=== PATIENT | male | born 1990 | race African-American/Black ===

== ENCOUNTER 2022-06-30 09:37 | Emergency (ER) | payer MEDICAID ==
[~2022-06-30] VITALS: Ht 170.2 cm; Wt 59.0 kg
[2022-06-30 09:57] VITALS: BP 168/99
--- NOTE | 2022-06-30 10:09 | NUR ---
PT CALM AND COOPERATIVE, FOLLOWS COMMANDS, NO DISTRESS NOTED, DENIES ANY PAIN, DENIES ANY DRUG USE, AMBULATORY AND STEADY GAIT NO SUICIDAL OR HOMICIDAL THOUGHTS
[2022-06-30 12:30] LABS: BASOPHILS # (AUTO) 0.1 K/uL (0.00-0.22); BASOPHILS % (AUTO) 1.1 % (0.0-2.0); EOSINOPHILS # (AUTO) 0.1 K/uL (0-0.4); EOSINOPHILS % (AUTO) 1.4 % (0.0-4.0); HEMATOCRIT 43.7 % (36-52); HEMOGLOBIN 15.3 g/dL (12.0-18.0); LYMPHOCYTES % (AUTO) 24.9 % (20.5-51.1); MEAN CORPUSCULAR HEMOGLOBIN 31 pg (27-31); MEAN CORPUSCULAR HGB CONC 35 g/dL (33-37); MEAN CORPUSCULAR VOLUME 89.9 fL (80-94); MONOCYTES # (AUTO) 0.5 K/uL (0.8-1.0); MONOCYTES % (AUTO) 6.3 % (1.7-9.3); NEUTROPHILS # (AUTO) 5.4 K/uL (1.8-7.7); NEUTROPHILS % (AUTO) 66.3 % (42.2-75.2); PLATELET COUNT (AUTO) 373 K/uL (140-450); RED BLOOD CELL COUNT(AUTO) 4.86 MIL/uL (4.20-6.10); RED CELL DISTRIBUTION WIDTH 14.1 % (11.6-13.7); WHITE BLOOD COUNT (AUTO) 8.2 K/uL (4.8-10.8)
[2022-06-30 12:32] LABS: ALBUMIN 4.8 g/dL (3.4-5.0); ANION GAP 16.3 (8-16); ASPARTATE AMINOTRANSFERASE 23 U/L (15-37); CARBON DIOXIDE 27.8 mmol/L (21-32); CHLORIDE 99 mmol/L (98-107); CREATININE 0.8 mg/dL (0.6-1.3); GFR ARICAN-AMERICAN 146 mL/min (>90); GLUCOSE 102 mg/dL (74-106); POTASSIUM 3.1 mmol/L (3.5-5.1); SODIUM SERUM 140 mmol/L (136-145); TOTAL BILIRUBIN 1.1 mg/dL (0.0-1.0); UREA NITROGEN, BLOOD 8 mg/dL (7-18)
--- NOTE | 2022-06-30 12:40 | NUR ---
URINE REQUESTED MULTIPLE TIMES, DOES NOT WANT TO VOID AT THIS TIME
[2022-06-30 12:42] LABS: ACETAMINOPHEN < 0.5 ug/ml (10-30)
[2022-06-30] MEDS ORDERED: POTASSIUM CHLORIDE 20% 40 MEQ/15 ML UDC PO ONE (13:40)
--- NOTE | 2022-06-30 13:56 | NUR ---
PATIENT LEFT WITHOUT D/C WORK/INSTRUCTIONS
== END 2022-06-30 13:56 | disposition home or self-care (01) ==
LOC: MED 09:37
DX: F29 Unspecified psychosis not due to a substance or known physiological condition (principal)
CPT/HCPCS: 36415; 80053; 85025; 99283; G0480; G0482